=== PATIENT | male | born 1965 | race African-American/Black ===

== ENCOUNTER 2023-04-25 16:25 | Inpatient (IN) | payer MEDICARE, MEDICAID, SELFPAY ==
[2023-04-25] VITALS (12 sets, daily range): BP systolic 137–184; BP diastolic 73–99; PULSE 57–69; RESP 16–20; TEMP 36.8–36.9; O2SAT 91–98; BMI 28.0; BMI 31.2
--- NOTE | 2023-04-25 16:37 | ECG_ITS ---
The [facility] Test Date: 2023-04-25 Pat Name: SARITHA MASTERSON Department: Room: - Gender: Male Regional Merchandising Manager: : 1965 Requested By: [id number] Order Number: [id number] Reading MD: DIEGO RIOS Measurements Intervals [place] Rate: 65 P: 30 WI: 164 QRS: -9 QRSD: 84 T: 68 QT: 412 QTc: 424 Interpretive Statements 1100 Sinus rhythm 9110 normal ECG No previous ECG available for comparison Electronically Signed On 04-25-2023 22:39:00 EST by DIEGO RIOS
--- NOTE | 2023-04-25 17:12 | ED_ITS ---
HPI - SOB/Dyspnea General Chief Complaint: Shortness of Breath/Dyspnea Stated Complaint: Shortness of Breath, General Weakness Time Seen by Provider: 04/25/23 17:00 Source: patient and family Mode of arrival: Wheelchair History of Present Illness HPI Narrative: This patient is here complaining shortness of breath. He is actually in pretty decent health but over the last 3 days he has noticed wheezing. Says he gets short of breath when he tries to exert himself. He has never used tobacco products. However he lived many years in a house where there was a lot of smokers. Also additionally recently they are doing some drywall work in her house and has been around the dust and dirt from standing. He has not had any recent influenza type symptoms. He did not have a sore throat runny nose earache muscle aches and pains. He has not had any swelling of his legs. He has got longstanding hypertension. He has not had previous renal disease or heart disease. He is never had a heart catheterization or stress test. He is currently looking for a family doctor as he just moved back To this area from the [facility]. He is not having any discomfort in his chest just the shortness of breath especially with exertion. He does not have a nebulizer and has never used any MDIs in the past. He is not any purulent sputum. Related Data Home Medications Medication Instructions Recorded Confirmed allopurinol 300 mg tablet 300 mg PO DAILY 04/25/23 04/25/23 amlodipine 5 mg tablet 5 mg PO DAILY 04/25/23 04/25/23 aripiprazole 5 mg tablet (Abilify) 5 mg PO DAILY 04/25/23 04/25/23 atorvastatin 20 mg tablet 20 mg PO DAILY 04/25/23 04/25/23 lisinopril 20 mg tablet 20 mg PO DAILY 04/25/23 04/25/23 metoprolol tartrate 100 mg tablet 100 mg PO DAILY 04/25/23 04/25/23 (Lopressor) mirtazapine 30 mg tablet 30 mg PO DAILY 04/25/23 04/25/23 Allergies Allergy/AdvReac Type Severity Reaction Status Date / Time No Known Drug Allergies Allergy Verified 04/25/23 16:34 Exam Narrative Exam Narrative: Awake alert very pleasant gentleman here . He is blind and I believe that was from childhood. He is awake oriented x 3 with good cognition. There is no confusion he is a good historian. HEENT: He has no jugular vein distention, there is no carotid bruits. ENT examination does not show any evidence of obstruction, he does not have any stridor his voice is normal. His lungs are clear with no rales or rhonchi however with coughing maneuvers she does have a lot of bronchospasm. Heart sounds are normal I do not hear murmur. Abdomen is benign. He does have a previous incision from umbilical hernia but he has no abdominal pain or symptomatology. His legs do not show any edema swelling phlebitis or tenderness. Constitutional Vital Signs, click to edit/add: Last Vital Signs Temp 98.4 F 04/25/23 16:31 Pulse 65 04/25/23 16:31 Resp 18 04/25/23 16:42 BP 154/84 H 04/25/23 16:31 Pulse Ox 98 04/25/23 16:41 O2 Del Method Room Air 04/25/23 16:41 Course Vital Signs Vital signs: Vital Signs Temperature 98.4 F 04/25/23 16:31 Pulse Rate 65 04/25/23 16:31 Respiratory Rate 16 04/25/23 16:31 Blood Pressure 154/84 H 04/25/23 16:31 Pulse Oximetry 98 04/25/23 16:31 Oxygen Delivery Method Room Air 04/25/23 16:31 Temperature 98.4 F 04/25/23 16:31 Pulse Rate 65 04/25/23 16:31 Respiratory Rate 18 04/25/23 16:42 Blood Pressure 154/84 H 04/25/23 16:31 Pulse Oximetry 98 04/25/23 16:41 Oxygen Delivery Method Room Air 04/25/23 16:41 MDM - SOB/Dyspnea MDM Narrative Medical decision making narrative: This patient has no family physician to follow-up in [facility] and has not been evaluated by doctor for at least 1 year when he was living in [place]. We find substantial elevation of his BNP. I believe this cardiac silhouette shows cardiomegaly with vascular congestive changes. His renal function is c ompromised. His troponin is normal. We do not see any infectious process. I believe is prudent for him to have further evaluation as an inpatient to facilitate his ongoing care in this community. Case was discussed with the hospitalist. Discharge Plan Discharge Chief Complaint: Shortness of Breath/Dyspnea Clinical Impression: Chronic renal failure (CRF), stage 2 (mild), CHF (congestive heart failure), Hypertension Patient Disposition: Admitted as Observation Time of Disposition Decision: 18:18 Prescriptions / Home Meds: No Action allopurinol 300 mg tablet 300 mg PO DAILY amlodipine 5 mg tablet 5 mg PO DAILY mirtazapine 30 mg tablet 30 mg PO DAILY atorvastatin 20 mg tablet 20 mg PO DAILY aripiprazole [Abilify] 5 mg tablet 5 mg PO DAILY lisinopril 20 mg tablet 20 mg PO DAILY metoprolol tartrate [Lopressor] 100 mg tablet 100 mg PO DAILY Referrals: Physician,Non-Staff, MD [Primary Care Provider] - 1 week
--- NOTE | 2023-04-25 17:17 | XR_ITS ---
The [address] [address] Patient Name: SARITHA MASTERSON MRN: [id number] date: 1965 Sex: M Assigned Patient Location: ER Current Patient Location: ED.MAIN Accession/Order Number: [id number] Exam Date: 04/25/2023 17:36 Report Date: 04/25/2023 18:18 At the request of: ALEJANDRO OCONNELL Procedure: XR chest 1V EXAM: XR chest 1V HISTORY: Dyspnea COMPARISON: None. TECHNIQUE: Single view of the chest FINDINGS: Cardiomegaly. No definitive consolidation, pleural effusion, pulmonary congestion or pneumothorax. XR/XR chest 1V IMPRESSION: No acute findings. Electronically authenticated by: ANDRIY MADERA Date: 04/25/2023 18:18
[2023-04-25 17:29] LABS: Basophils Percent Auto 0.6 % (0.2-2.0); Eosinophils Absolute Auto 0.1 10^3/uL (0.0-0.7); Eosinophils Percent Auto 1.6 % (0.9-7.0); Hematocrit 29.4 % (42.0-54.0); Hemoglobin 9.3 g/dL (14.0-18.0); Immature Granulocytes Abs Auto 0.02 10^3/uL (0.00-0.03); Immature Granulocytes Pct Auto 0.3 % (0.0-0.5); Lymphocytes Absolute Auto 1.3 10^3/uL (1.2-3.8); Lymphocytes Percent Auto 18.8 % (20.5-60.0); Mean Corpuscular HGB Conc 31.6 g/dL (29.9-35.2); Mean Corpuscular Hemoglobin 30.9 pg (25.9-34.0); Mean Corpuscular Volume 97.7 fL (80.0-94.0); Mean Platelet Volume 11.9 fL (9.5-13.5); Monocytes Absolute Auto 0.6 10^3/uL (0.3-0.8); Monocytes Percent Auto 8.5 % (1.7-12.0); Neutrophils Absolute Auto 4.8 10^3/uL (1.4-6.5); Neutrophils Percent Auto 70.2 % (43.0-75.0); Platelet Count 173 10^3/uL (150-450); Red Blood Count 3.01 10^6/uL (4.70-6.10); Red Cell Distribution Width 13.3 % (11.0-15.0); White Blood Count 6.8 10^3/uL (4.0-11.0)
[2023-04-25 17:42] LABS: Internal Control Within Normal Limits; Respiratory Syncytial Virus Not Detected (NOT DETECTE)
[2023-04-25] MEDS: IPRATROPIUM/ALBUTEROL SULFATE 3 ML AMPUL.NEB IH (17:43)
[2023-04-25 17:51] LABS: Alanine Aminotransferase 12 U/L (16-63); Albumin Globulin Ratio 0.6; Albumin Level 3.2 g/dL (3.4-5.0); Alkaline Phosphatase 146 U/L (46-116); Anion Gap 13.5; Aspartate Amino Transferase 16 U/L (15-37); BUN Creatinine Ratio 10.6; Bilirubin Total 0.4 mg/dL (0.2-1.0); Chloride 107 mmol/L (98-107); Estimated GFR (African America 32 (>=60); Estimated GFR (Non-African Ame 26 (>=60); Globulin 5.1 g/dL; Glucose 100 mg/dL (74-106); Potassium 5.5 mmol/L (3.5-5.1); Sodium 140 mmol/L (136-145); Total Protein 8.3 g/dL (6.4-8.2); Troponin I High Sensitivity 16.7 pg/mL (4.0-76.1)
[2023-04-25] MEDS: BUMETANIDE 1 MG/4 ML VIAL IVP (18:23)
--- NOTE | 2023-04-25 18:30 | ECG_ITS ---
The [facility] Test Date: 2023-04-26 Pat Name: SARITHA MASTERSON Department: Room: 220 Gender: Male Fitness Coach: : 1965 Requested By: [id number] Order Number: [id number] Reading MD: DIEGO RIOS Measurements Intervals [place] Rate: 64 P: 32 DE: 161 QRS: 11 QRSD: 84 T: 63 QT: 410 QTc: 425 Interpretive Statements SINUS RHYTHM WARNING: DATA QUALITY MAY AFFECT INTERPRETATION Compared to ECG 04/25/2023 16:36:20 No significant changes Electronically Signed On 04-26-2023 6:41:03 EST by DIEGO RIOS
[2023-04-25 18:45] LABS: Bilirubin Urine NEGATIVE (NEGATIVE); Blood Urine TRACE-L (NEGATIVE); Clarity Urine CLEAR (CLEAR); Color Urine YELLOW (YELLOW); Glucose Urine UA NEGATIVE (NEGATIVE); Ketones Urine NEGATIVE (NEGATIVE); Leukocyte Esterase Urine NEGATIVE (NEGATIVE); Nitrite Urine NEGATIVE (NEGATIVE); Protein Urine 100 mg/dL (NEG/TRACE); Specific Gravity Urine 1.015 (1.005-1.025); Urobilinogen Urine 0.2 EU/dL (0.2-1.0); pH Urine 5.5 (5.0-9.0)
[2023-04-25 18:47] LABS: Urine Microscopic Indicated YES
[2023-04-25 19:12] LABS: Bacteria Urine NONE SEEN #/HPF (NONE SEEN); Mucus Urine TRACE (NONE SEEN); RBC Urine 0-2 #/HPF (0-2); WBC Urine 0-2 #/HPF (NONE SEEN)
[2023-04-25 19:13] LABS: Cast Seen? NONE SEEN #/LPF (NONE SEEN); Crystals Seen? None Seen #/HPF (None Seen); Squamous Epithelial Cell Urine NONE SEEN #/LPF (NONE/RARE)
[2023-04-25] MEDS: HYDRALAZINE HCL 20 MG/ML VIAL 10 MG IVP (20:51)
[2023-04-25] MEDS: 0.9 % SODIUM CHLORIDE 1,000 ML 75 ML IV (20:51)
[2023-04-25] MEDS: ACETAMINOPHEN 325 MG TABLET 650 MG PO (20:52)
[2023-04-25 22:56] LABS: Troponin I High Sensitivity 18.4 pg/mL (4.0-76.1)
[2023-04-26] VITALS (25 sets, daily range): BP systolic 119–165; BP diastolic 61–82; PULSE 52–91; RESP 16–20; TEMP 36.6–37.5; O2SAT 90–98
[2023-04-26] MEDS: HYDRALAZINE HCL 20 MG/ML VIAL 10 MG IVP (04:07)
[2023-04-26 04:50] LABS: Basophils Percent Auto 0.5 % (0.2-2.0); Eosinophils Absolute Auto 0.1 10^3/uL (0.0-0.7); Hematocrit 27.5 % (42.0-54.0); Hemoglobin 8.7 g/dL (14.0-18.0); Immature Granulocytes Abs Auto 0.02 10^3/uL (0.00-0.03); Immature Granulocytes Pct Auto 0.3 % (0.0-0.5); Lymphocytes Absolute Auto 1.5 10^3/uL (1.2-3.8); Lymphocytes Percent Auto 25.2 % (20.5-60.0); Mean Corpuscular HGB Conc 31.6 g/dL (29.9-35.2); Mean Corpuscular Hemoglobin 30.6 pg (25.9-34.0); Mean Corpuscular Volume 96.8 fL (80.0-94.0); Mean Platelet Volume 12.5 fL (9.5-13.5); Monocytes Absolute Auto 0.7 10^3/uL (0.3-0.8); Monocytes Percent Auto 11.3 % (1.7-12.0); Neutrophils Absolute Auto 3.6 10^3/uL (1.4-6.5); Neutrophils Percent Auto 61.7 % (43.0-75.0); Platelet Count 159 10^3/uL (150-450); Red Blood Count 2.84 10^6/uL (4.70-6.10); Red Cell Distribution Width 13.2 % (11.0-15.0); White Blood Count 5.8 10^3/uL (4.0-11.0)
[2023-04-26 05:20] LABS: Alanine Aminotransferase 11 U/L (16-63); Albumin Globulin Ratio 0.6; Albumin Level 2.9 g/dL (3.4-5.0); Alkaline Phosphatase 133 U/L (46-116); Anion Gap 12.4; Aspartate Amino Transferase 14 U/L (15-37); BUN Creatinine Ratio 10.8; Bilirubin Total 0.6 mg/dL (0.2-1.0); Calcium 8.7 mg/dL (8.5-10.1); Carbon Dioxide 23.5 mmol/L (21.0-32.0); Chloride 106 mmol/L (98-107); Chol HDL Ratio 2.1; Cholesterol 147 mg/dL (<=200); Estimated GFR (African America 32 (>=60); Estimated GFR (Non-African Ame 27 (>=60); Globulin 4.6 g/dL; Glucose 82 mg/dL (74-106); HDL Cholesterol 69 mg/dL (40-60); Potassium 4.9 mmol/L (3.5-5.1); Sodium 137 mmol/L (136-145); Total Protein 7.5 g/dL (6.4-8.2); Triglycerides 66 mg/dL (<=150); Troponin I High Sensitivity 20.1 pg/mL (4.0-76.1); VLDL CHOLESTEROL 13.2 mg/dL
--- NOTE | 2023-04-26 06:00 | CA_ITS ---
Patient Name: SARITHA MASTERSON MR#: [id number] : 1965 Exam Date: 04/26/2023 Ordering Doctor: ORI OROZCO ECHOCARDIOGRAM REPORT PROCEDURE: CA ECHO DOPPLER COMPLETE INDICATIONS: new CHF Exacerbation COMPARISON: None. DESCRIPTION: COMPLETE ECHOCARDIOGRAM Real-time transthoracic echocardiography with 2D, M-mode, spectral and color flow Doppler performed. QUALITY: Technical quality was good. LEFT VENTRICLE: Normal chamber size. Mild concentric left ventricular hypertrophy. Global left ventricular systolic function is normal. LV EF: Visual estimation of left ventricular ejection fraction is 65-70% DIASTOLIC: Diastolic function is indeterminate. ATRIAL SEPTUM: LEFT ATRIUM: Severe dilatation. RIGHT ATRIUM: Moderate dilatation. RIGHT VENTRICLE: Normal chamber size. Normal right ventricular systolic function. TRICUSPID VALVE: Normal mobility and thickness. No stenosis with trivial regurgitation. Unable to assess right-sided pressures due to lack of measurable tricuspid regurgitation. MITRAL VALVE: Normal mobility and thickness. No evidence of mitral valve stenosis. There is no mitral annular calcification. AORTIC VALVE: Trileaflet appearance. Normal leaflet mobility. Cannot rule out possible vegetation. No evidence of aortic valve stenosis. Echogenic density seen on the ventricular surface of the aortic valve in the parasternal long view. MARCO recommended for further evaluation. Mild to moderate eccentric aortic regurgitation. AORTIC ROOT: Normal diameter and appearance. PULMONIC VALVE: Normal thickness and mobility. No stenosis. No regurgitation. PERICARDIUM: Trivial pericardial effusion. IVC: Collapses with inspirations. Normal size. PLEURA: CONCLUSION: 1. Mild concentric left ventricular hypertrophy with normal systolic function. LVEF is estimated at 65 to 70%. 2. Normal right ventricular size and systolic function. 3. Moderate to severe biatrial dilatation. 4. The aortic valve appears to be trileaflet. There is evidence of a mobile echogenic mass attached to the ventricular surface of the aortic valve that could represent calcification, old healed vegetation or active vegetation. There is mild to moderate eccentric aortic regurgitation. 5. A transesophageal echocardiogram is recommended to provide better assessment. Adult Echocardiography Procedure Report Left Ventricle LVEDD (3.7 - 5.6 cm): 5.88 cm LVESD (2.2 - 4.0 cm): 3.57 cm LVIVS thickness (0.6 - 1.2 cm): 1.29 cm LVPW thickness (0.5 - 1.0 cm): 1.16 cm e': 0.09 m/s E - e': 11.49 LVOT Max Gradient: 5.63 mm[Hg] LVOT Area (cm2): 1.19 m/s Peak Velocity (LVOT): 1.19 m/s Mean Velocity (LVOT): 0.91 m/s LVOT Diameter 2.03 cm Left Ventricular Ejection Fraction: 65-70 % Left Atrium LA Volume Index (2D A2C): 56.58 ml/m2 Left Atrium Systolic Dimension: 4.50 cm Mitral Valve MV E to A Ratio: 1.63 Mitral Valve A-Wave Peak Velocity: 0.61 m/s Mitral Valve E-Wave Peak Velocity: 0.99 m/s Right Ventricle Aorta AO Root Diam: 3.30 cm Ascending Ao Diam: 3.67 cm Aortic Valve AoV Area (Peak Berry): 1.92 cm2, 1.92 cm2 AoV Area (VTI): 2.17 cm2, 2.17 cm2 Peak Velocity(Antegrade Flow): 1.99 m/s Peak Gradient(Antegrade Flow): 15.79 mm[Hg] Mean Velocity(Antegrade Flow): 1.31 m/s Mean Gradient(Antegrade Flow): 8.03 mm[Hg] Velocity Time Integral: 42.69 cm Tricuspid Valve Peak Velocity (Regurgitant Flow): 1.58 m/s, 1.86 m/s Pulmonic Valve Mean Gradient: 4.66 mm[Hg], 5.25 mm[Hg] Mean Velocity: 1.03 m/s, 1.08 m/s Peak Velocity: 1.42 m/s Peak Gradient: 7.56 mm[Hg], 8.61 mm[Hg] Right Atrium Dictated by: Ori Ortez M.D. on 04/26/2023 at 15:56 Approved by: Ori Ortez M.D. on 04/26/2023 at 16:04
--- OUTSIDE RECORDS SUMMARY | 2023-04-26 09:01 | XMS_ITS | CCD ---
Author Name Unknown Address [address] [place] [id number] Organization [facility] Care Team Providers Care Electrician'S Assistant Name Role Phone KELSIE CARRILLO Unavailable Unavailable BRODY ANGULO Unavailable Unavaila ble Problems Problem Classification Problem Date Documented Da te Episodic/Chronic Unclassified (1 source) Unknown / UNK(Unknown) Onset: 05-20-2017 Results Test Name Value Interpretation Reference Range Facil itvikram PROGRESSon 05-20-2017 PROGRESS HNO ID: [id number] thor: Kelsie Borjaervice: (none)Author Type: PhysicianType: Progress NotesFiled: 05/20/2017 4:10 PMNote Text:1) 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 Rodriguez - 2009) BSCVA 20/250, PH ) Glaucomatous Optic Nerve Changes Shows inferior and superior NFL losses OU normal IOP tested with reasonable color testing (~12/15 plates OU)5) Macular RPE Atrophy OS may be responsible for vision loss at level of 20/200 no macular atrophy ODPlan: It seems that the majority of his visual loss OD is from theKeratoconus/Keratoglob us with 14.5 D of ATR AstigmatismConsider Specialty CL fitting with Dr. Cherri Linares at [facility] not able to fit, then consider DALK MARILIA have confirmed and edited as necessary the relevant ophthalmic history,ROS, and the neuro exam findings as obtained by others. I have seen andexamined this patient.I have discussed the case and the management of this patient's care withthe Resident/Fellow, if applicable. I also have reviewed and agree withthe assessment and plan as stated above and agree with all of its relevantcomponents.Kelsie Carrillo MD May 20, 2017 4:04 PM Normal [facility] Encounters Encounter Date Encounter Type Care Provider Facility Start: 05-20-2017 End: 05-27-2017 Ambulatory KELSIE CARRILLO [facility] Summary Purpose Family History No Family History Records Found Advance Directives No Advanced Directives Records Found Additional Source Comments (unrecognized sect ion and content) No Status Records Found INFORMATION SOURCE (unrecogn ized section and content) DATE CREATED AUTHOR 08/11/2017 [facility] FOR RECORDS PERTAINING TO PATIENTS WHO ARE OR HAVE BEEN ENROLLED IN A CHEMICAL DEPENDENCY/SUBSTANCEABUSE PROGRAM, SOME INFORMATION MAY BE OMITTED. This clinical summary was aggregated from multiple sources. Caution should be exercised in using it in the provision of clinical care. This summary normalizes information from multiple sources, and as a consequence, information in this document may materially change the coding, format and clinical context of patient data. In addition, data may be omitted in some cases. CLINICAL DECISIONS SHOULD BE BASED ON THE PRIMARY CLINICAL RECORDS. [facility] [employer] provides no warranty or guarantee of the accuracy or completeness of information in this document.
[2023-04-26] MEDS: ALLOPURINOL 300 MG TABLET PO (09:06)
[2023-04-26] MEDS: MIRTAZAPINE 15 MG TABLET 30 MG PO (09:06)
[2023-04-26] MEDS: METOPROLOL TARTRATE 100 MG TABLET PO (09:07)
[2023-04-26] MEDS: ARIPIPRAZOLE 5 MG TABLET PO (09:07)
[2023-04-26] MEDS: AMLODIPINE BESYLATE 5 MG TABLET PO (09:07)
[2023-04-26] MEDS: ATORVASTATIN CALCIUM 20 MG TABLET PO (09:07)
[2023-04-26] MEDS: FUROSEMIDE 20 MG/2 ML VIAL IVP (09:08)
[2023-04-26] MEDS: ACETAMINOPHEN 325 MG TABLET 650 MG PO (09:10)
[2023-04-26] MEDS: 0.9 % SODIUM CHLORIDE 1,000 ML 75 ML IV ×2 (09:21→20:16)
--- NOTE | 2023-04-26 09:50 | CM.NOTE ---
Rounds made with Dr. Chau. Dr. Chau reviews plan of care-Echo ordered, Cardiology Consult. Mr. Sparrow with complaints of back pain. P.T. to be ordered.
[2023-04-26 10:30] LABS: Estimated Average Glucose 88 mg/dL; Glycohemoglobin A1C 4.7 % (4.5-6.2)
--- NOTE | 2023-04-26 12:29 | PM.CN ---
Consult Note: HPI Data of Consult Patient: new to practice Consult date: 04/26/23 Requesting Physician: Gayatri Lemus NP Primary Care Provider: Non-Staff Physician, Family Provider: CONNIE NGO Consult Narrative Reason for consult: elevated BNP, SOB Narrative: 58 yo patient presented to ED complaining shortness of breath. Says he was having wheezing and short of breath with exertion. He has never used tobacco products, admits that he lives with smokers and significant exposure. He has not had any recent influenza type symptoms. He did not have a sore throat runny nose, earache, muscle aches,or pains. He has not had any swelling of his legs. He has got longstanding hypertension and dyslipidemia. Currently denied chest pain, SOB, Orthopnea, fever, chills, N/V/D. Overall states he feels well today. Denied weight gain or leg swelling. Denied any personal h/o cardiac disease, ever having a heart cath or heart surgery. Denied any family h/o early heart disease. cc:: CC: Gayatri Lemus NP Review of Systems ROS Status of ROS 10 or more systems reviewed and unremarkable except as noted in history and below [facility] Medical History (Updated 04/26/23 @ 12:51 by ISABELLE EMERY) DM2 (diabetes mellitus, type 2) ?E11.9 - Type 2 diabetes mellitus without complications (ICD-10) Bipolar depression ?F31.9 - Bipolar disorder, unspecified (ICD-10) Hypertension ?I10 - Essential (primary) hypertension (ICD-10) CHF (congestive heart failure) ?I50.9 - Heart failure, unspecified (ICD-10) Chronic renal failure (CRF), stage 2 (mild) ?N18.2 - Chronic kidney disease, stage 2 (mild) (ICD-10) Hernia ?K46.9 - Unspecified abdominal hernia without obstruction or gangrene (ICD-10) Blindness ?H54.7 - Unspecified visual loss (ICD-10) Surgical History History of lumbar laminectomy for spinal cord decompression ?Z98.890 - Other specified postprocedural states (ICD-10) Family History Sister Family history of CHF (congestive heart failure) Family history of cancer Family history of diabetes mellitus Family history of hypertension Father Family history of cancer Mother Family history of cancer Brother Family history of diabetes mellitus Family history of hypertension Social History Within the past year, how often did you have a drink containing alcohol: 4 or more times a week Within the past year, how many standard drinks containing alcohol did you have on a typical day: 3 or 4 Within the past year, how often did you have six or more drinks on one occasion: never Total score: 2 Score interpretation: A score of 4 or more indicates drinking is likely to affect patient's safety. Smoking status: Never smoker Non-prescribed substance use: denies use Previous occupational history: disabled Highest level of school completed/degree received: high school graduate Are you now , , , , never or living with a partner: never In a typical week, how many times do you talk on the telephone with family, friends, or neighbors: once per week How often do you get together with friends or relatives: once per week How often do you attend religion or restorationism services: never Do you belong to any clubs or organizations such as religion groups unions, [employer] or athletic groups, or school groups: no Total score: 0 Score interpretation: A score of less than or equal to 1 indicates the most socially isolated. Little interest or pleasure in doing things: not at all Feeling down, depressed, or hopeless: several days Feel stressed/tense/nervous/anxious/difficulty sleeping: only a little Gender Identity: male Meds Home Medications and Allergies Home Medications Medication Instructions Recorded Confirmed Type allopurinol 300 mg tablet 300 mg PO DAILY 04/25/23 04/25/23 History amlodipine 5 mg tablet 5 mg PO DAILY 04/25/23 04/25/23 History aripiprazole 5 mg tablet (Abilify) 5 mg PO DAILY 04/25/23 04/25/23 History atorvastatin 20 mg tablet 20 mg PO DAILY 04/25/23 04/25/23 History lisinopril 20 mg tablet 20 mg PO DAILY 04/25/23 04/25/23 History metoprolol tartrate 100 mg tablet 100 mg PO DAILY 04/25/23 04/25/23 History (Lopressor) mirtazapine 30 mg tablet 30 mg PO DAILY 04/25/23 04/25/23 History Allergies Allergy/AdvReac Type Severity Reaction Status Date / Time No Known Drug Allergies Allergy Verified 04/25/23 16:34 Exam Constitutional Vital Signs, click to edit/add: Last Vital Signs Temp 98.1 F 04/26/23 11:15 Pulse 65 04/26/23 11:51 Resp 16 04/26/23 11:15 BP 137/63 04/26/23 11:15 Pulse Ox 91 L 04/26/23 11:15 O2 Del Method Room Air 04/26/23 11:15 Common normals: no apparent distress, oriented x3 and well nourished Respiratory Common normals: normal respiratory effort, no retractions, no use of accessory muscles and clear to auscultation bilaterally Effort & inspection: able to speak in complete sentences Cardio Common normals: no JVD, regular rate, regular rhythm, S1 normal heart sound, S2 normal heart sound, no gallops, no clicks and no murmurs Peripheral pulses: radial pulses present, posterior tibial pulses present and dorsalis pedis pulses present Extremity Common normals: normal capillary refill and no clubbing, cyanosis or edema Neuro Common normals: oriented x3 and CN's II-XII intact bilaterally Psych Common normals: mental status grossly normal, thought process normal, cooperative, affect normal and speech normal Results Labs Labs: Short CBC 04/25/23 04/26/23 Range/Units 17:15 03:57 WBC 6.8 5.8 (4.0-11.0) 10^3/uL Hgb 9.3 L 8.7 L (14.0-18.0) g/dL Hct 29.4 L 27.5 L (42.0-54.0) % Plt Count 173 159 (150-450) 10^3/uL BMP 04/25/23 04/26/23 17:15 03:57 Sodium 140 137 Potassium 5.5 H 4.9 Chloride 107 106 Carbon Dioxide 25.0 23.5 BUN 27.0 H 27.0 H Creatinine 2.55 H 2.50 H Glucose 100 82 Calcium 9.0 8.7 Liver Function 04/25/23 04/26/23 Range/Units 17:15 03:57 Total Bilirubin 0.4 0.6 (0.2-1.0) mg/dL AST 16 14 L (15-37) U/L ALT 12 L 11 L (16-63) U/L Alkaline Phosphatase 146 H 133 H (46-116) U/L Albumin 3.2 L 2.9 L (3.4-5.0) g/dL Urine 04/25/23 Range/Units 18:30 Urine Color Yellow (YELLOW) Urine Clarity Clear (CLEAR) Urine pH 5.5 (5.0-9.0) Ur Specific [place] 1.015 (1.005-1.025) Urine Protein 100 A (NEG/TRACE) mg/dL Urine Glucose (UA) Negative (NEGATIVE) mg/dL 04/26/23 03:57 BNP 2187.0?H* 04/25/23 17:15 2387.0?H* Troponin Collected Result ? Units Range Specimen 04/26/23 03:57 20.1 Cholesterol -147 <=200?mg/dL LDL Cholesterol, Calc-65.0 VLDL Cholesterol-13.2 HDL Cholesterol-69?H 40-60?mg/dL Cholesterol/HDL Ratio-2.1 ECG Attestation: ?I have reviewed the pertinent ECG results. ECG interpretation date: 04/25/23 Interpretation: Interpretive Statements SINUS RHYTHM Compared to ECG 04/25/2023 16:36:20 No significant changes Electronically Signed On 04-26-2023 6:41:03 EST by DIEGO RIOS Imaging Chest x-ray: Attestation: I have reviewed the pertinent imaging results. Radiologist's impression: Procedure: XR chest 1V EXAM: XR chest 1V HISTORY: Dyspnea COMPARISON: None. TECHNIQUE: Single view of the chest FINDINGS: Cardiomegaly. No definitive consolidation, pleural effusion, pulmonary congestion or pneumothorax. XR/XR chest 1V IMPRESSION: No acute findings. Electronically authenticated by: ANDRIY MADERA Date: 04/25/2023 18:18 Assessment and Plan Assessment and Plan (1) STEW (acute kidney injury): Assessment and Plan: managed by primary service (2) Dyspnea on exertion: Assessment and Plan: Currently resolved. (3) Elevated brain natriuretic peptide (BNP) level: Assessment and Plan: Awaiting echocardiogram today to assess cardiac function, LV/EF, RV size and function, Rt sided pressures. Per assessment pt does not appear fluid overloaded, no edema or rales in light of STEW. May benefit from a nephrology referral. Monitor daily weights, I&O, fluid restriction 1.5-2L/day Diuretics on hold per PCP for STEW (4) DM2 (diabetes mellitus, type 2): Assessment and Plan: managed my primary service Qualifiers: Diabetes mellitus complication status: with kidney complications Diabetes mellitus complication detail: with other kidney complication Diabetes mellitus detention insulin use: without rat exterminator use Qualified Code(s): E11.29 - Type 2 diabetes mellitus with other diabetic kidney complication (5) Hypertension: Assessment and Plan: CUrrently fairly well controlled 137/63 Continue norvasc,and metoprolo, lisinopril on hold with STEW Qualifiers: Hypertension type: primary hypertension Qualified Code(s): I10 - Essential (primary) hypertension Plan as above
--- NOTE | 2023-04-26 13:25 | P.HP_ITS ---
<Statement entered by Alejo Chau MD - 04/27/23 05:55> This documentation has been reviewed and approved. Patient seen and evaluated in the morning of admission. Agree with input and findings. On my exam he does have trace peripheral edema. Uncontrolled hypertension could have led to flash pulmonary edema-patient was improved in the morning, check an echo report. Elevated liver function test-follow daily Status this is acute versus chronic kidney disease H&P: HPI History of Present Illness Chief complaint: Shortness of Breath, CHF, Hypertension Narrative: 04/26/23 0910 This is a 58-year-old male patient with a past medical history as outlined below including R eye blindness, bipolar depression, hyperlipidemia, hypertension, and gout; who presented to the ED last night complaining of a 3-day course of shortness of breath especially with exertion. He denies any URI symptoms, fever, increased cough, chest pain, N/V/D, or any other acute symptoms. He reported moving to this area from [place] in January. He has not yet established with a PCP since relocation to [place]. He denies any history of kidney disease, but does note a remote history of diabetes that resolved after he lost weight. He denies tobacco abuse, but lived with smokers for many years. Workup in the ED revealed apparent acute kidney injury (BUN 27, CR 2.55, GFR 26), and elevated BNP (2387). Chest x-ray revealed cardiomegaly but no consolidation, vascular congestion, or pneumothorax. EKG revealed sinus rhythm the patient was not hypoxic but was noted to have a reactive airway in the ED. He was admitted to the hospitalist service last night for STEW and reactive airway with dyspnea on exertion. At the time of my exam the patient is resting comfortably in bed. His respirations are even and unlabored and he does not require O2 supplementation. Mild, isolated wheezing is noted to the left lower lobe. His renal function improved slightly with IV fluid administration overnight. He was given a dose of Bumex in the ED due to his elevated BNP, but in the absence of peripheral edema or pulmonary edema, we clinically suspect the elevated BNP is related to his renal failure. We will hold further diuretics for now. The patient does not have any idea if he has chronic kidney disease at baseline. We do not have access to any labs from [place] at this time but we will attempt to obtain these if possible. Review of Systems ROS Status of ROS 10 or more systems reviewed and unremark able except as noted in history and below [facility] Medical History (Updated 04/26/23 @ 13:51 by Gayatri Lemus NP) Hyperlipidemia ?E78.5 - Hyperlipidemia, unspecified (ICD-10) DM2 (diabetes mellitus, type 2) ?E11.9 - Type 2 diabetes mellitus without complications (ICD-10) Bipolar depression ?F31.9 - Bipolar disorder, unspecified (ICD-10) Hypertension ?I10 - Essential (primary) hypertension (ICD-10) CHF (congestive heart failure) ?I50.9 - Heart failure, unspecified (ICD-10) Chronic renal failure (CRF), stage 2 (mild) ?N18.2 - Chronic kidney disease, stage 2 (mild) (ICD-10) Hernia ?K46.9 - Unspecified abdominal hernia without obstruction or gangrene (ICD- 10) Blindness ?H54.7 - Unspecified visual loss (ICD-10) Surgical History History of lumbar laminectomy for spinal cord decompression ?Z98.890 - Other specified postprocedural states (ICD-10) Family History Sister Family history of CHF (congestive heart failure) Family history of cancer Family history of diabetes mellitus Family history of hypertension Father Family history of cancer Mother Family history of cancer Brother Family history of diabetes mellitus Family history of hypertension Social History Within the past year, how often did you have a drink containing alcohol: 4 or more times a week Within the past year, how many standard drinks containing alcohol did you have on a typical day: 3 or 4 Within the past year, how often did you have six or more drinks on one occasion: never Total score: 2 Score interpretation: A score of 4 or more indicates drinking is likely to affect patient's safety. Smoking status: Never smoker Non-prescribed substance use: denies use Previous occupational history: disabled Highest level of school completed/degree received: high school graduate Are you now , , , , never or living with a partner: never In a typical week, how many times do you talk on the telephone with family, friends, or neighbors: once per week How often do you get together with friends or relatives: once per week How often do you attend scientologist or mosque services: never Do you belong to any clubs or organizations such as scientologist groups unions, fraternal or athletic groups, or school groups: no Total score: 0 Score interpretation: A score of less than or equal to 1 indicates the most socially isolated. Little interest or pleasure in doing things: not at all Feeling down, depressed, or hopeless: several days Feel stressed/tense/nervous/anxious/difficulty sleeping: only a little Gender Identity: male Meds Home Medications and Allergies Home Medications Medication Instructions Recorded Confirmed Type allopurinol 300 mg tablet 300 mg PO DAILY 04/25/23 04/25/23 History amlodipine 5 mg tablet 5 mg PO DAILY 04/25/23 04/25/23 History aripiprazole 5 mg tablet (Abilify) 5 mg PO DAILY 04/25/23 04/25/23 History atorvastatin 20 mg tablet 20 mg PO DAILY 04/25/23 04/25/23 History lisinopril 20 mg tablet 20 mg PO DAILY 04/25/23 04/25/23 History metoprolol tartrate 100 mg tablet 100 mg PO DAILY 04/25/23 04/25/23 History (Lopressor) mirtazapine 30 mg tablet 30 mg PO DAILY 04/25/23 04/25/23 History Allergies Allergy/AdvReac Type Severity Reaction Status Date / Time milk Allergy Severe Hives Verified 04/26/23 13:32 Exam Constitutional Vital Signs, click to edit/add: Last Vital Signs Temp 98.1 F 04/26/23 11:15 Pulse 65 04/26/23 11:51 Resp 16 04/26/23 11:15 BP 137/63 04/26/23 11:15 Pulse Ox 91 L 04/26/23 11:15 O2 Del Method Room Air 04/26/23 11:15 Common normals: no apparent distress, oriented x3, alert and well nourished General appearance: cooperative Orientation/consciousness: Yes awake HENMT Common normals: normocephalic, head/scalp atraumatic, hearing grossly normal bilaterally, external nose normal and moist oral mucous membranes Head and scalp: normocephalic and atraumatic Eye Common normals: PERRL, EOMs intact bilaterally, conjunctivae normal and no scleral icterus Alignment: alignment normal Eyelid: eyelids normal Neck & C-Spine Common normals: full ROM, supple and no JVD Chest Common normals: inspection of chest normal Chest: symmetrical chest wall rise Respiratory Common normals: normal respiratory effort, no retractions and no use of accessory muscles Effort & inspection: able to speak in complete sentences Auscultation: wheezes (Faint insp LLL) Cardio Common normals: no JVD, regular rate, regular rhythm, S1 normal heart sound, S2 normal heart sound, no gallops, no clicks, no rub and peripheral pulses 2+ throughout Heart sounds: murmur (HSM 3/6) GI Common normals: Normal to inspection, nondistended, normoactive bowel sounds present, soft to palpation, non-tender, no hepatosplenomegaly, no masses and no bruits Bladder/kidney exam: bladder normal to palpation Back & Pelvis Common normals: thoracic and lumbar spine normal to inspection Extremity Common normals: normal capillary refill and no pedal edema General: normal exam except as noted; no clubbing and no cyanosis Neuro [place] Coma Scale: GCS not evaluated Common normals: oriented x3, CN's II-XII intact bilaterally, moves all extremities, no focal motor deficits and no sensory deficits noted Sensorium/orientation: awake and alert Speech: speech normal Motor exam: strength 5/5 throughout Psych Common normals: mental status grossly normal, thought process normal, affect normal and activity/motor behavior normal Results Labs Labs: Short CBC 04/25/23 04/26/23 Range/Units 17:15 03:57 WBC 6.8 5.8 (4.0-11.0) 10^3/uL Hgb 9.3 L 8.7 L (14.0-18.0) g/dL Hct 29.4 L 27.5 L (42.0-54.0) % Plt Count 173 159 (150-450) 10^3/uL BMP 04/25/23 04/26/23 17:15 03:57 Sodium 140 137 Potassium 5.5 H 4.9 Chloride 107 106 Carbon Dioxide 25.0 23.5 BUN 27.0 H 27.0 H Creatinine 2.55 H 2.50 H Glucose 100 82 Calcium 9.0 8.7 Liver Function 04/25/23 04/26/23 Range/Units 17:15 03:57 Total Bilirubin 0.4 0.6 (0.2-1.0) mg/dL AST 16 14 L (15-37) U/L ALT 12 L 11 L (16-63) U/L Alkaline Phosphatase 146 H 133 H (46-116) U/L Albumin 3.2 L 2.9 L (3.4-5.0) g/dL Urine 04/25/23 Range/Units 18:30 Urine Color Yellow (YELLOW) Urine Clarity Clear (CLEAR) Urine pH 5.5 (5.0-9.0) Ur Specific [place] 1.015 (1.005-1.025) Urine Protein 100 A (NEG/TRACE) mg/dL Urine Glucose (UA) Negative (NEGATIVE) mg/dL Pulse Oximetry Attestation: I have reviewed the pertinent pulse oximetry results. Imaging Chest x-ray: Attestation: I have reviewed the pertinent imaging results. Radiologist's impression: IMPRESSION: No acute findings. Assessment and Plan Assessment and Plan (1) STEW (acute kidney injury): Assessment and Plan: Acute * Adm inpatient * Plan more than 2 midnight stay for medically necessary hospital care * Suspect acute as pt does not recollect prior hx of CKD * Attempt to obtain records from previous [place] PCP if possible * Hold renal toxic meds including home ACEi and further diuretic doses * Gentle IVF at 75/hr * CMP daily (2) Mild reactive airways disease: Assessment and Plan: Acute * Unclear etiology - no known history of environmental allergies or asthma * Duonebs PRN for SOB or wheezing * No evidence of hypoxia to date (3) Dyspnea on exertion: Assessment and Plan: Acute * 2/2 reactive airways - see above * Mild, improving * No pneumonia or CHF on CXR * No hypoxia * See elevated BNP (4) Elevated brain natriuretic peptide (BNP) level: Assessment and Plan: Acute * Unclear etiology * No known CHF history, no pulmonary vascular congestion or peripheral edema * Possibly 2/2 STEW/CKD * Trending down * 2D Echo today * Cardiology consult - we appreciate their assistance with this pt's care * BNP in AM (5) Hypertension: Assessment and Plan: Chronic * Hold home lisinopril d/t STEW * Increase home amlodipine to 10 mg daily * Continue home metoprolol * PRN Hydralazine IVP Qualifiers: Hypertension type: primary hypertension Qualified Code(s): I10 - Essential (primary) hypertension (6) DM2 (diabetes mellitus, type 2): Assessment and Plan: Chronic * Remote hx of metformin use, but diet controlled now since weight loss * No hyperglycemia since arrival * A1C in AM to monitor recent trend Qualifiers: Diabetes mellitus salvage determiner insulin use: without senior care use Diabetes mellitus complication status: with kidney complications Diabetes mellitus complication detail: with other kidney complication Qualified Code(s): E11.29 - Type 2 diabetes mellitus with other diabetic kidney complication (7) Hyperlipidemia: Assessment and Plan: Chronic * Continue home statin (8) Bipolar depression: Assessment and Plan: Chronic * Continue home mirtazapine and Abilify
[2023-04-26 14:43] LABS: C. Difficile PCR NEGATIVE (NEGATIVE)
--- NOTE | 2023-04-26 15:10 | SWNOTE1 ---
SW met with pt to discuss dc needs. Pt lives at home by himself. He has a sister who is close by. Pt moved back from [place], voiced he was just tired of living here. He was originally from [place]. Pt voices he is independent at home. Pt also stated he went to [place] for his eyes, he had surgery on them, but it did not work. He has a hard time seeing out of both eyes. He voiced he could not see SW, pt was in the hospital bed and SW was sitting on couch. Pt did voice his sister is around here and helps as needed. Pt does not voice any discharge concerns. Pt does not have a PCP in this area. SW did provide pt with the list of physicians in this area accepting new patients. SABI advised pt if he had any questions to ask for SW.
[2023-04-26] MEDS: LOPERAMIDE HCL 2 MG CAPSULE 4 MG PO (15:18)
[2023-04-27] VITALS (7 sets, daily range): BP systolic 137–160; BP diastolic 62–68; PULSE 18–75; RESP 16–18; TEMP 36.8–36.9; O2SAT 92–93
[2023-04-27 04:55] LABS: Basophils Percent Auto 0.6 % (0.2-2.0); Eosinophils Absolute Auto 0.1 10^3/uL (0.0-0.7); Eosinophils Percent Auto 1.9 % (0.9-7.0); Hematocrit 27.4 % (42.0-54.0); Hemoglobin 8.6 g/dL (14.0-18.0); Immature Granulocytes Abs Auto 0.02 10^3/uL (0.00-0.03); Immature Granulocytes Pct Auto 0.4 % (0.0-0.5); Lymphocytes Absolute Auto 1.4 10^3/uL (1.2-3.8); Lymphocytes Percent Auto 27.3 % (20.5-60.0); Mean Corpuscular HGB Conc 31.4 g/dL (29.9-35.2); Mean Corpuscular Hemoglobin 30.6 pg (25.9-34.0); Mean Corpuscular Volume 97.5 fL (80.0-94.0); Monocytes Absolute Auto 0.5 10^3/uL (0.3-0.8); Monocytes Percent Auto 10.4 % (1.7-12.0); Neutrophils Absolute Auto 3.1 10^3/uL (1.4-6.5); Neutrophils Percent Auto 59.4 % (43.0-75.0); Platelet Count 154 10^3/uL (150-450); Red Blood Count 2.81 10^6/uL (4.70-6.10); Red Cell Distribution Width 13.2 % (11.0-15.0); White Blood Count 5.2 10^3/uL (4.0-11.0)
[2023-04-27 05:37] LABS: Alanine Aminotransferase 8 U/L (16-63); Albumin Globulin Ratio 0.6; Albumin Level 2.9 g/dL (3.4-5.0); Alkaline Phosphatase 127 U/L (46-116); Anion Gap 12.4; Aspartate Amino Transferase 11 U/L (15-37); BUN Creatinine Ratio 10.5; Bilirubin Total 0.6 mg/dL (0.2-1.0); Calcium 8.6 mg/dL (8.5-10.1); Chloride 108 mmol/L (98-107); Estimated GFR (African America 34 (>=60); Estimated GFR (Non-African Ame 28 (>=60); Globulin 4.8 g/dL; Glucose 84 mg/dL (74-106); Potassium 4.4 mmol/L (3.5-5.1); Sodium 139 mmol/L (136-145); Total Protein 7.7 g/dL (6.4-8.2)
[2023-04-27] MEDS: AMLODIPINE BESYLATE 5 MG TABLET 10 MG PO (08:48)
[2023-04-27] MEDS: ALLOPURINOL 300 MG TABLET PO (08:52)
[2023-04-27] MEDS: TRAMADOL HCL 50 MG TABLET PO (08:52)
[2023-04-27] MEDS: ARIPIPRAZOLE 5 MG TABLET PO (08:52)
[2023-04-27] MEDS: MIRTAZAPINE 15 MG TABLET 30 MG PO (08:52)
[2023-04-27] MEDS: METOPROLOL TARTRATE 100 MG TABLET PO (08:52)
[2023-04-27] MEDS: ATORVASTATIN CALCIUM 20 MG TABLET PO (08:54)
[2023-04-27] MEDS: 0.9 % SODIUM CHLORIDE 1,000 ML 75 ML IV (10:14)
--- NOTE | 2023-04-27 10:29 | SWNOTE1 ---
SABI spoke to pt while Gayatri nurse practitioner was in room. He is to follow up with cardiology and he would like to use Namita Roldan as his PCP (nurse practitioner) to follow up with. SABI did relay this information to Danyell and also to Marina, electrocardiograph operator. Pt voiced his sister will be providing ride home today.
--- NOTE | 2023-04-27 11:18 | CM.NOTE ---
Rounds made with Dr. Chau. Plan for discharge today.
--- NOTE | 2023-04-27 12:08 | P.DS_ITS ---
<Statement entered by Alejo Chau MD - 04/27/23 19:11> This documentation has been reviewed and approved. Patient was seen and evaluated earlier this morning. Patient had not been up and ambulating yet. He does overall feel improved his only significant thing is his back pain. Agree with input and findings by nurse practitioner. He will follow-up with my nurse practitioner at [facility]. Will arrange for the nephrology follow-up at that time DS: Providers Provider Date of admission: 04/25/23 18:50 Primary care physician: Non-Staff PhysicianMD Consults: 04/25/23 18:33 Consult to Cardiology Routine Reason for consultation: new CHF Exacerb; no cardiac Hx/no stress test Has provider been notified: No 04/27/23 10:35 Physical Therapy Eval and Treat Routine Reason for consultation: back pain Has provider been notified: No Discharging clinician: Gayatri Lemus DS: Diagnosis Discharge Diagnosis (1) STEW (acute kidney injury): (2) Mild reactive airways disease: (3) Dyspnea on exertion: (4) Elevated brain natriuretic peptide (BNP) level: (5) Hypertension: Qualifiers: Hypertension type: primary hypertension Qualified Code(s): I10 - Esse ntial (primary) hypertension (6) DM2 (diabetes mellitus, type 2): Qualifiers: Diabetes mellitus complication detail: with other kidney complication Diabetes mellitus complication status: with kidney complications Diabetes mellitus allergist insulin use: without allergist use Qualified Code(s): E11.29 - Type 2 diabetes mellitus with other diabetic kidney complication (7) Hyperlipidemia: (8) Bipolar depression: (9) Chronic back pain greater than 3 months duration: DS: Summary Hospital Course Hospital Course: The patient was admitted with acute kidney injury, dyspnea on exertion with mild reactive airway disease, and an elevated BNP. As the patient just moved to this area from [place] and we do not have any outpatient labs, it is unclear if his renal function represents his baseline or acute kidney injury. He was treated with IV fluids and had mild improvement in his kidney function but no significant change. We suspect this may represent his baseline but that is yet to be determined. Renal toxic medications were held including lisinopril during his stay and at discharge. His amlodipine was increased to improve his hypertensive control with the absence of lisinopril. The patient had mild wheezing on exam but no significant dyspnea after admission and no hypoxia. DuoNebs were ordered but the patient did not require any DuoNeb administration. We defer further treatment to his outpatient provider after discharge if indicated. An elevated proBNP was also noted on admission of unclear etiology with no known history of CHF. A 2D echo was obtained and cardiology was consulted. They noted the patient did not appear hypervolemic during his stay and did not require diuretic administration, especially in light of his renal function. His 2D echo revealed preserved LVEF of 65 to 70%, normal RV size and systolic function, and moderate to severe biatrial dilatation. Evidence of a mobile echogenic mass attached to the ventricular surface of the aortic valve was noted and could represent calcification, old healed vegetation or active vegetation. Mild to moderate eccentric aortic regurgitation was also noted. A follow up MARCO was recommended. In an abundance of caution blood cultures x 2 were obtained to rule out bacteremia, but the patient has been afebrile and nontoxic during this admission. Blood cultures are still pending at the time of discharge. As the patient's condition is improved he is being discharged home in stable condition. An outpatient MARCO has been ordered by the cardiology service and the patient will follow-up with cardiology after this has been obtained. In addition, the patient complained of persistent low back pain. He has been referred to spinal surgery for further evaluation as this patient has a remote history of prior laminectomy, but now has recurrent and persistent back pain. He does not endorse saddle anesthesia or changes in bowel or bladder. He was evaluated by PT prior to discharge and he was able to ambulate without difficulty independently. We have also ordered PT and OT as an outpatient for his back pain. We recommend a referral to nephrology by the patient's new PCP after his TCM visit. Time Spent with Patient Time attestation: Total time spent providing and/or coordinating discharge services: Time spent: greater than 30 minutes Specific discharge activities: Physical exam, discussion of discharge plan, questions answered. Exam Constitutional Vital Signs, click to edit/add: Last Vital Signs Temp 98.3 F 04/27/23 08:00 Pulse 64 04/27/23 10:00 Resp 16 04/27/23 08:00 BP 160/68 H 04/27/23 08:48 Pulse Ox 93 L 04/27/23 08:00 O2 Del Method Room Air 04/27/23 08:00 Common normals: no apparent distress, oriented x3 and alert General appearance: cooperative Orientation/consciousness: Yes awake HENMT Common normals: normocephalic and head/scalp atraumatic Eye Common normals: PERRL, EOMs intact bilaterally, conjunctivae normal and no scleral icterus Respiratory Common normals: normal respiratory effort and no use of accessory muscles Effort & inspection: able to speak in complete sentences and symmetric chest movement Auscultation: wheezes (Faint EE BLL) Cardio Common normals: no JVD, regular rate, regular rhythm, S1 normal heart sound, S2 normal heart sound and peripheral pulses 2+ throughout Heart sounds: murmur (HSM 3/6) GI Common normals: Normal to inspection, nondistended, normoactive bowel sounds present, soft to palpation and non-tender Bladder/kidney exam: bladder normal to palpation Extremity Common normals: normal to inspection, full ROM, normal capillary refill and no pedal edema Neuro Common normals: moves all extremities, no focal motor deficits and no sensory deficits noted Speech: speech normal Psych Common normals: mental status grossly normal and activity/motor behavior normal DS: Data Data Completed and Pending Labs on day of discharge: Labs from last 24 hours 04/27/23 04/26/23 04:38 12:23 WBC 5.2 RBC 2.81 L Hgb 8.6 L Hct 27.4 L MCV 97.5 H MCH 30.6 MCHC 31.4 RDW 13.2 Plt Count 154 MPV 12.0 Neut % (Auto) 59.4 Lymph % (Auto) 27.3 [place] % (Auto) 10.4 Eos % (Auto) 1.9 Baso % (Auto) 0.6 Neut # (Auto) 3.1 Lymph # (Auto) 1.4 [place] # (Auto) 0.5 Eos # (Auto) 0.1 Baso # (Auto) 0.0 Abs Immat Gran (auto) 0.02 Imm/Tot Granulo (auto) 0.4 Sodium 139 Potassium 4.4 Chloride 108 H Carbon Dioxide 23.0 Anion Gap 12.4 BUN 25.0 H Creatinine 2.39 H Est GFR ( Amer) 34 L Est GFR (Non-Af Amer) 28 L BUN/Creatinine Ratio 10.5 Glucose 84 Calcium 8.6 Total Bilirubin 0.6 AST 11 L ALT 8 L Alkaline Phosphatase 127 H NT-Pro-B Natriuret Pep 2162.0 H* Total Protein 7.7 Albumin 2.9 L Globulin 4.8 Albumin/Globulin Ratio 0.6 C. difficile Toxin PCR Negative Imaging Chest x-ray: Radiologist's impression: IMPRESSION: No acute findings. 2D Echo: Radiologist's impression: CONCLUSION: 1. Mild concentric left ventricular hypertrophy with normal systolic function. LVEF is estimated at 65 to 70%. 2. Normal right ventricular size and systolic function. 3. Moderate to severe biatrial dilatation. 4. The aortic valve appears to be trileaflet. There is evidence of a mobile echogenic mass attached to the ventricular surface of the aortic valve that could represent calcification, old healed vegetation or active vegetation. There is mild to moderate eccentric aortic regurgitation. 5. A transesophageal echocardiogram is recommended to provide better assessment. Discharge Plan Discharge Disposition: Home, Self-Care Discharge Medications: New amlodipine 5 mg Tablet 10 mg PO DAILY 30 Days Qty: 60 0RF tramadol 50 mg tablet 50 mg PO Q6H PRN (Reason: pain) Qty: 20 0RF Continued allopurinol 300 mg tablet 300 mg PO DAILY mirtazapine 30 mg tablet 30 mg PO DAILY atorvastatin 20 mg tablet 20 mg PO DAILY aripiprazole [Abilify] 5 mg tablet 5 mg PO DAILY metoprolol tartrate [Lopressor] 100 mg tablet 100 mg PO DAILY Discontinued amlodipine 5 mg tablet 5 mg PO DAILY lisinopril 20 mg tablet 20 mg PO DAILY Patient Instructions: Acute Kidney Injury (DC), Basic Metabolic Panel (GEN) Activity Restrictions/Additional Instructions: - PCP to consider Nephrology referral - PT/OT order provided at discharge for lumbar back pain Forms: Portal Instructions Follow Up Appointments: May 01 @ 2pm with Stacey Roldan NP [address], [place] [phone] Please bring insurance cards, photo id, list of meds and come early to fill out paperwork prior to appt. TuesdayMay 19 @ 9:[address] Jacobs orthopedic [facility] [phone] [place] Cardiology will contact the patient to set up an outpatient MARCO appt. Discharge Date/Time: 04/27/23 12:13
--- NOTE | 2023-04-29 15:06 | CM.DCFOLLOWU ---
Person spoke with: mother of his children How are you feeling? doing alright How is your pain? no pain, voiced he was sleepy Did you understand your discharge instructions? yes Do you have any questions about your discharge instructions? no Were you given any prescriptions at discharge? yes Were you able to get your prescriptions filled? yes Do you understand how to take your medications as ordered? yes Do you have any questions about your follow up appointment and do you plan to keep your follow up appointment? no questions, aware of follow up Is there anything else that you would like to discuss? no Questions/Comments/Concerns/Other: N/A
== END 2023-04-27 12:13 | disposition home or self-care (01) | DRG 291 ==
LOC: ER 18:49 → MS 04-26 06:00
PROVIDERS: Nurse Practitioner Acute Care; Admitting Provider Family Medicine; Emergency Provider Emergency Medicine Emergency Medical Services; Visit Provider Nurse Practitioner
DX: I13.0 Hypertensive heart and chronic kidney disease with heart failure and stage 1 through stage 4 chronic kidney disease, or unspecified chronic kidney disease (principal); I50.41 Acute combined systolic (congestive) and diastolic (congestive) heart failure; N17.9 Acute kidney failure, unspecified; E78.5 Hyperlipidemia, unspecified; F31.9 Bipolar disorder, unspecified; E11.22 Type 2 diabetes mellitus with diabetic chronic kidney disease; H54.7 Unspecified visual loss; R06.09 Other forms of dyspnea; J45.909 Unspecified asthma, uncomplicated; R74.8 Abnormal levels of other serum enzymes; G89.29 Other chronic pain; M54.50 Low back pain, unspecified; N18.2 Chronic kidney disease, stage 2 (mild); I35.1 Nonrheumatic aortic (valve) insufficiency
CPT/HCPCS: 36415; 71045; 80053; 80061; 81001; 83036; 83880; 84484; 85025; 87040; 87420; 87493; 93005; 93306; 94640; 96374; 96375; 96376; 99285

== ENCOUNTER 2023-05-07 08:19 | Outpatient (OUT) | payer MEDICARE, MEDICAID, SELFPAY ==
--- NOTE | 2023-05-07 | XR_ITS ---
[facility] [id number] Patient Name: SARITHA MASTERSON MRN: [id number] date: 1965 Sex: M Assigned Patient Location: LAB Current Patient Location: Accession/Order Number: [id number] Exam Date: 05/07/2023 08:59 Report Date: 05/09/2023 07:36 At the request of: HERMINIA LOZANO Procedure: XR lumbar spine 2-3V EXAMINATION: XR lumbar spine 2-3V HISTORY: M54.30 SCIATICA COMPARISON: No relevant comparison available. FINDINGS: BONES: 30% anterior superior wedge compression fracture of L1. Moderate diffuse degenerative spondylosis and facet osteoarthropathy DISC SPACES: Multilevel disc space narrowing most significant L4-5 and L5-S1 PARASPINOUS: Negative. No paraspinous abnormality is seen. OTHER: Negative. XR/XR lumbar spine 2-3V IMPRESSION: Moderate diffuse degenerative changes Electronically authenticated by: FLO DICKINSON Date: 05/09/2023 07:36
--- OUTSIDE RECORDS SUMMARY | 2023-05-07 08:23 | XMS_ITS | CCD ---
Author Name Unknown Address [address] [place] [id number] Organization [facility] Care Team Providers Care Security Solutions Engineer Name Role Phone KELSIE CARRILLO Unavailable Unavailable BRODY ANGULO Unavailable Unavaila ble Problems Problem Classification Problem Date Documented Da te Episodic/Chronic Unclassified (1 source) Unknown / UNK(Unknown) Onset: 05-20-2017 Results Test Name Value Interpretation Reference Range Facil itvikram PROGRESSon 05-20-2017 PROGRESS HNO ID: [id number] thor: Kelsie Borjaervice: (none)Author Type: PhysicianType: Progress [...] CL fitting with Dr. Cherri Linares at [facility] not able to fit, then consider DALK [...] MD May 20, 2017 4:04 PM Normal [facility] Encounters Encounter Date Encounter Type Care Provider Facility Start: 05-20-2017 End: 05-27-2017 Ambulatory KELSIE CARRILLO [facility] Summary Purpose Family History No Family History Records Found Advance Directives No Advanced Directives Records Found Additional Source Comments (unrecognized sect ion and content) No Status Records Found INFORMATION SOURCE (unrecogn ized section and content) DATE CREATED AUTHOR 08/11/2017 [facility] FOR RECORDS PERTAINING TO PATIENTS WHO [...] BE BASED ON THE PRIMARY CLINICAL RECORDS. [facility] [employer] provides no warranty or guarantee of the accuracy or completeness of information in this document.
[2023-05-07 09:02] LABS: Basophils Percent Auto 0.7 % (0.2-2.0); Eosinophils Absolute Auto 0.2 10^3/uL (0.0-0.7); Eosinophils Percent Auto 3.2 % (0.9-7.0); Hematocrit 30.8 % (42.0-54.0); Hemoglobin 9.7 g/dL (14.0-18.0); Immature Granulocytes Abs Auto 0.02 10^3/uL (0.00-0.03); Immature Granulocytes Pct Auto 0.4 % (0.0-0.5); Lymphocytes Absolute Auto 1.4 10^3/uL (1.2-3.8); Mean Corpuscular HGB Conc 31.5 g/dL (29.9-35.2); Mean Corpuscular Hemoglobin 30.8 pg (25.9-34.0); Mean Corpuscular Volume 97.8 fL (80.0-94.0); Mean Platelet Volume 12.1 fL (9.5-13.5); Monocytes Absolute Auto 0.7 10^3/uL (0.3-0.8); Monocytes Percent Auto 12.9 % (1.7-12.0); Neutrophils Percent Auto 56.8 % (43.0-75.0); Platelet Count 156 10^3/uL (150-450); Red Blood Count 3.15 10^6/uL (4.70-6.10); Red Cell Distribution Width 12.9 % (11.0-15.0); White Blood Count 5.3 10^3/uL (4.0-11.0)
[2023-05-07 09:14] LABS: Estimated Average Glucose 88 mg/dL; Glycohemoglobin A1C 4.7 % (4.5-6.2)
[2023-05-07 09:45] LABS: Alanine Aminotransferase 13 U/L (16-63); Albumin Globulin Ratio 0.6; Albumin Level 3.2 g/dL (3.4-5.0); Alkaline Phosphatase 142 U/L (46-116); Anion Gap 17.6; Aspartate Amino Transferase 21 U/L (15-37); BUN Creatinine Ratio 8.9; Bilirubin Total 0.6 mg/dL (0.2-1.0); Calcium 8.8 mg/dL (8.5-10.1); Carbon Dioxide 24.3 mmol/L (21.0-32.0); Chloride 103 mmol/L (98-107); Chol HDL Ratio 2.7; Cholesterol 152 mg/dL (<=200); Estimated GFR (African America 30 (>=60); Estimated GFR (Non-African Ame 24 (>=60); Globulin 5.2 g/dL; Glucose 89 mg/dL (74-106); HDL Cholesterol 57 mg/dL (40-60); Potassium 4.9 mmol/L (3.5-5.1); Sodium 140 mmol/L (136-145); Total Protein 8.4 g/dL (6.4-8.2); Triglycerides 95 mg/dL (<=150)
[2023-05-07 09:53] LABS: Prostate Specific Antigen Scrn 2.06 ng/mL (<=4.00)
[2023-05-08 13:07] LABS: Insulin 7.7 uIU/mL (2.6-24.9)
== END 2023-05-07 08:20 | disposition home or self-care (01) ==
PROVIDERS: PCP Nurse Practitioner Family; Visit Provider Nurse Practitioner Family
DX: M54.30 Sciatica, unspecified side (principal); I10 Essential (primary) hypertension; M51.36 Other intervertebral disc degeneration, lumbar region
CPT/HCPCS: 36415; 72100; 80053; 80061; 83036; 83525; 85025; G0103

== ENCOUNTER 2023-05-17 07:43 | Outpatient (OUT) | payer MEDICARE, MEDICAID, SELFPAY ==
--- OUTSIDE RECORDS SUMMARY | 2023-05-17 07:45 | XMS_ITS | CCD ---
Author Organization [facility] Care Team Providers Care Double Needle Operator Name Role Phone KELSIE CARRILLO Unavailable Unavailable BRODY ANGULO Unavailable Unavaila ISABELLE Boss Referring Unavailable Problems Problem Classification Problem Date Documented Da te Episodic/Chronic Heart valve disorders (2 sources) Nonrheumatic aortic valve disorder, unspecified; Translations: [Nonrheumatic aortic valve disorder, unspecified] Onset: 05-11-2023 Chronic Unclassified (1 source) Unknown / UNK(Unknown) Onset: 05-20-2017 Results Test Name Value Interpretation Reference Range Facility HPon 05-11-2023 History Of Present Illness Saritha Masterson is a 58 y.o. male presenting for scheduled MARCO. PMHx of DM, HTN, recently diagnosed HFpEF, CKD. He was recently admitted to OSH with SOB and was newly diagnosed with ADHF/HFpEF. He was found to have worsening renal function. His 2D echo revealed preserved LVEF of 65 to 70%, normal RV size and systolic function, and moderate to severe biatrial dilatation. Evidence of a mobile echogenic mass attached to the ventricular surface of the aortic valve was noted and could represent calcification, old healed vegetation or active vegetation. Mild to moderate eccentric aortic regurgitation was also noted. A follow up MARCO was recommended. Today, he denies any CP, SOB, KAUFFMAN, dizziness or syncope. Past Medical History He has a past medical history of STEW (acute kidney injury) (CMS/[facility]) and Hypertension. Surgical History He has no past surgical history on file. Social History He has no history on file for tobacco use, alcohol use, and drug use. Allergies Patient has no known allergies. Medications (Not in a hospital admission) Reviewed on [facility] chart Review of Systems 12 point ROS negative except as in HPI Physical Exam Constitutional: General: He is not in acute distress. Appearance: He is obese. HENT: Head: Normocephalic and atraumatic. Eyes: Comments: Impaired vision, legally blind Cardiovascular: Rate and Rhythm: Bradycardia present. Pulses: Normal pulses. Pulmonary: Effort: Pulmonary effort is normal. Abdominal: General: There is no distension. Palpations: Abdomen is soft. Musculoskeletal: General: Normal range of motion. Cervical back: Normal range of motion and neck supple. Skin: General: Skin is warm and dry. Neurological: Mental Status: He is alert and oriented to person, place, and time. Psychiatric: Mood and Affect: Mood normal. Last Recorded Vitals Blood pressure 119/66, pulse (!) 46, resp. rate 18, SpO2 95 %. Relevant Results OSH TTE 04/26/23 CONCLUSION: 1. Mild concentric left ventricular hypertrophy with normal systolic function. LVEF is estimated at 65 to 70%. 2. Normal right ventricular size and systolic function. 3. Moderate to severe biatrial dilatation. 4. The aortic valve appears to be trileaflet. There is evidence of a mobile echogenic mass attached to the ventricular surface of the aortic valve that could represent calcification, old healed vegetation or active vegetation. There is mild to moderate eccentric aortic regurgitation. 5. A transesophageal echocardiogram is recommended to provide better assessment. Assessment/Plan HFpEF DM, HTN, CKD C/f mobile echogenic mass on AV - will proceed with MARCO for further assessment of AV mass and r/o vegetations/IE - procedure's details, risks and benefits discussed with the patient and he's agreeable - further recs pending MARCO results [facility] NURSNOTEon 05-11-2023 NURSNOTE RN educated pt on d/ c instructions. RN encouraged pt to voice any questions or concerns. Pt verbalizes no questions or concerns at this time. Pt was wheeled off of unit with all of belongings. Normal [facility] NURSNOTE Bedside swallow stud y completed and passed. Normal [facility] Orders Onlyon 05-10-2023 Orders Only [id number] Heraclio Masterson 1965 M Date Provider Department Center 05/10/2023 PANKAJ MCGUIRE [facility] No family history on file [facility] Telephoneon 05-03-2023 Telephone [phone] Heraclio Masterson 1965 M Date Provider Department Center 05/03/2023 JUAN J SANCHEZ [facility] No family history on file Normal [facility] PROGRESSon 05-20-2017 PROGRESS HNO ID: [id number]: Kelsie Borjaervice: (none)Author Type: PhysicianType: Progress NotesFiled: [...] of his visual loss OD is from the[place]at[place]/Keratoglo bus with 14.5 D of ATR AstigmatismConsider Specialty CL fitting with Dr. Cherri Linares at [facility] not able to fit, then consider NICHELLE MARILIA have confirmed and edited as necessary the relevant ophthalmic history,ROS, and the neuro exam findings as obtained by others. I have seen andexamined this patient.I have discussed the case and the management of this patient's care withthe Resident/Fellow, if applicable. I also have reviewed and agree withthe assessment and plan as stated above and agree with all of its relevantcomponents.Vikas Carrillo MD May 20, 2017 4:04 PM Normal [facility] Encounters Encounter Date Encounter Type Care Provider Facility Start: 05-11-2023 End: 05-12-2023 ambulatory ISABELLE RUPERT [facility] Start: 05-20-2017 End: 05-27-2017 Ambulatory KELSIE CARRILLO [facility] Payers Date Payer Category Payer Medicaid [id number] 2007 Medicare [id number] Clinical Note 05-11-2023 Note Date & Type Note Facility 05-11-2023 Note Patient: Saritha De Jesus Sco tt Procedure Information Date/Time: 05/11/23 1030 Procedure: TRANSESOPHAGEAL ECHO (MARCO) Location: [facility] Vascular Lab Clinical information reviewed: Allergies Meds Physical Exam Airway Mallampati: III TM distance: >3 FB Neck ROM: full Cardiovascular Rhythm: regular Rate: abnormal Dental Pulmonary Breath sounds clear to auscultation Abdominal (+) obese Abdomen: soft Anesthesia Plan ASA 4 other (Moderate sedation) Anesthetic plan and risks discussed with patient. Use of blood products discussed with patient who. Plan discussed with attending and fellow. Additional Equipment Requests [facility] Summary Purpose Family History No Family History Records FoundNo Family History Records Found Advance Directives No Advanced Directives Records FoundNo Advanced Directives Records Found Additional Source Comments (unrecognized sect ion and content) No Status Records FoundNo Status Records Found INFORMATION SOURCE (unrecogn ized section and content) DATE CREATED AUTHOR 08/11/2017 [facility] DATE CREATED AUTHOR AUTHOR'S ORGANIZ ATION 05/13/2023 [facility] FOR RECORDS PERTAINING TO PATIENTS WHO [...] BE BASED ON THE PRIMARY CLINICAL RECORDS. [employer] provides no warranty or guarantee of the accuracy or completeness of information in this document.
--- NOTE | 2023-05-17 07:46 | MR_ITS ---
The [address] [address] Patient Name: SARITHA MASTERSON MRN: [id number] date: 1965 Sex: M Assigned Patient Location: MRI Current Patient Location: MRI Accession/Order Number: [id number] Exam Date: 05/17/2023 08:02 Report Date: 05/17/2023 10:47 At the request of: HERMINIA LOZANO Procedure: MR lumbar spine wo con EXAMINATION: MR lumbar spine wo con HISTORY: Sciatica M54.30, Lumbago With Sciatica M54.41, COMPARISON: No relevant comparison available. TECHNIQUE: A variety of imaging planes and parameters were utilized for visualization of suspected pathology. FINDINGS: For the purposes of numbering, sagittal T2 image # 8 extends from the T10 vertebral body superiorly to the S2-S3 level inferiorly. PARASPINAL AREA: Normal with no visible mass. BONES: 10% anterior superior wedge compression fracture T12 and L1, presence of increased T2 and STIR pulse sequence suggest bone edema. Areas of signal abnormality in the L2 and L3 vertebral bodies possibly hemangiomas. Decreased T1 increased T2 signal inferior L5 superior S1 vertebral bodies likely Modic 2 changes CORD/CAUDA EQUINA: Normal caliber, contour, and signal intensity. DISC LEVELS: 12-L1: No significant disc/facet abnormality, spinal stenosis, or foraminal stenosis. L1-L2: Moderate disc space narrowing and disc desiccation. No disc bulge or herniation no central or foraminal stenosis L2-L3: Mild disc space narrowing and disc desiccation. Mild diffuse disc/osteophyte complex most significant along the left neural foramen. No central canal stenosis. Mild right and moderate left foraminal stenosis L3-L4: Mild disc desiccation. Mild disc/osteophyte complex. No central canal stenosis. Minimal bilateral foraminal stenosis L4-L5: Disc space narrowing and disc desiccation. Moderate diffuse disc/osteophyte complex and facet osteoarthropathy. No central canal stenosis. Moderate right and mild left foraminal stenosis L5-S1: Disc/osteophyte complex. No central or foraminal stenosis MR/MR lumbar spine wo con IMPRESSION: Mild anterior superior wedging of the T12 and L1 vertebral bodies, consider acute or subacute injury Moderate degenerative changes with central and foraminal stenosis at multiple levels as detailed above Electronically authenticated by: FLO DICKINSON Date: 05/17/2023 10:47
== END 2023-05-17 07:44 | disposition home or self-care (01) ==
LOC: MRI 07:43
PROVIDERS: PCP Nurse Practitioner Family; Visit Provider Nurse Practitioner Family
DX: M54.41 Lumbago with sciatica, right side (principal); M54.42 Lumbago with sciatica, left side; M51.36 Other intervertebral disc degeneration, lumbar region
CPT/HCPCS: 72148

== ENCOUNTER 2023-05-18 12:19 | Outpatient (OUT) | payer MEDICARE, MEDICAID, SELFPAY ==
--- OUTSIDE RECORDS SUMMARY | 2023-05-18 12:32 | XMS_ITS | CCD ---
Author Organization [facility] Care Team Providers Care City Plant Supervisor Name Role Phone KELSIE CARRILLO Unavailable Unavailable [...] medical history of STEW (acute kidney injury) (CMS/[facility]) and Hypertension. Surgical History He has no past surgical history on file. Social History He has no history on file for tobacco use, alcohol use, and drug use. Allergies Patient has no known allergies. Medications (Not in a hospital admission) Reviewed on [facility] chart Review of Systems 12 point ROS [...] agreeable - further recs pending MARCO results [facility] NURSNOTEon 05-11-2023 NURSNOTE RN educated pt on d/ c instructions. RN encouraged pt to voice any questions or concerns. Pt verbalizes no questions or concerns at this time. Pt was wheeled off of unit with all of belongings. Normal [facility] NURSNOTE Bedside swallow stud y completed and passed. Normal [facility] Orders Onlyon 05-10-2023 Orders Only [id number] Heraclio Masterson 1965 M Date Provider Department Center 05/10/2023 PANKAJ MCGUIRE [facility] No family history on file [facility] Telephoneon 05-03-2023 Telephone [phone] Heraclio Masterson 1965 M Date Provider Department Center 05/03/2023 JUAN J SANCHEZ [facility] No family history on file Normal [facility] PROGRESSon 05-20-2017 PROGRESS HNO ID: [id number]: Kelsie Borjaervice: (none)Author Type: PhysicianType: Progress NotesFiled: [...] CL fitting with Dr. Cherri Linares at [facility] not able to fit, then consider [...] MD May 20, 2017 4:04 PM Normal [facility] Encounters Encounter Date Encounter Type Care Provider Facility Start: 05-11-2023 End: 05-12-2023 ambulatory ISABELLE RUPERT [facility] Start: 05-20-2017 End: 05-27-2017 Ambulatory KELSIE CARRILLO [facility] Payers Date Payer Category Payer Medicaid [id number] 2007 Medicare [id number] Clinical Note 05-11-2023 Note Date & Type Note Facility 05-11-2023 Note Patient: Saritha De Jesus Sco tt Procedure Information Date/Time: 05/11/23 1030 Procedure: TRANSESOPHAGEAL ECHO (MARCO) Location: [facility] Heart and Vascular Center Vascular [...] with attending and fellow. Additional Equipment Requests [facility] Summary Purpose Family History No Family History Records FoundNo Family History Records Found Advance Directives No Advanced Directives Records FoundNo Advanced Directives Records Found Additional Source Comments (unrecognized sect ion and content) No Status Records FoundNo Status Records Found INFORMATION SOURCE (unrecogn ized section and content) DATE CREATED AUTHOR 08/11/2017 [facility] DATE CREATED AUTHOR AUTHOR'S ORGANIZ ATION 05/13/2023 [facility] FOR RECORDS PERTAINING TO PATIENTS [...] BE BASED ON THE PRIMARY CLINICAL RECORDS. [employer] provides no warranty or guarantee of the accuracy or completeness of information in this document.
[2023-05-18 13:41] LABS: Erythrocyte Sedimentation Rate 114 mm/hr (<=20)
[2023-05-19 05:08] LABS: C-Reactive Protein, Cardiac 57.23 mg/L (0.00-3.00)
== END 2023-05-18 12:20 | disposition home or self-care (01) ==
LOC: LAB 12:20
PROVIDERS: PCP Nurse Practitioner Family; Visit Provider Internal Medicine Interventional Cardiology
DX: R60.9 Edema, unspecified (principal)
CPT/HCPCS: 36415; 85652; 86140

== ENCOUNTER 2023-05-20 09:21 | Outpatient (OUT) | payer MEDICARE, MEDICAID, SELFPAY ==
--- NOTE | 2023-05-20 | XR_ITS ---
The [address] [address] Patient Name: SARITHA MASTERSON MRN: [id number] date: 1965 Sex: M Assigned Patient Location: LAB Current Patient Location: Accession/Order Number: [id number] Exam Date: 05/20/2023 09:54 Report Date: 05/21/2023 06:01 At the request of: SAMANTHA POWELL Procedure: XR lumbar spine 2-3V EXAMINATION: XR lumbar spine 2-3V HISTORY: LUMBAR SPINE PAIN COMPARISON: XR lumbar spine 05/07/2023 FINDINGS: BONES: L1 mild compression fracture; stable. 6 mm retrolisthesis of L2 on 3 which develops during extension. DISC SPACES: Moderate disc space narrowing L1-L2, L2-L3, L4-L5, L5-S1. PARASPINOUS: Negative. No paraspinous abnormality is seen. OTHER: Negative. XR/XR lumbar spine 2-3V IMPRESSION: 1. Only flexion and extension views were obtained; comparison is made to 05/07/2023. 2. 6 mm retrolisthesis of L2 on 3 develops during extension. 3. Stable moderate compression fracture L1. 4. Stable multilevel moderate degenerative disc disease. Electronically authenticated by: ANNETTE COLLADO Date: 05/21/2023 06:01
--- OUTSIDE RECORDS SUMMARY | 2023-05-20 09:26 | XMS_ITS | CCD ---
Author Organization [facility] Care Team Providers Care Livestock Dealer Name Role Phone KELSIE CARRILLO Unavailable Unavailable BRODY ANGULO Unavailable Unavaila ble ELESTEVAN, EHAB Attending Unavailable ISABELLE EMERY Referring Unavailable Problems Problem Classification Problem Date Documented Da te Episodic/Chronic Heart valve disorders (4 sources) Nonrheumatic aortic (valve) insufficiency; Translations: [Nonrheumatic aortic valve disorder, unspecified] Onset: 05-11-2023 Chronic Unclassified (1 source) Unknown / UNK(Unknown) Onset: 05-20-2017 Results Test Name Value Interpretation Reference Range Facility Office Visiton 05-18-2023 Follow-up visit [id number] Heraclio Sparrow 1965 M Date Provider Department Center 05/18/2023 [id number] Family History Problem Relation Age of Onset No Known Problems Mother No Known Problems Father Family Status - Relation Status Age at Mother Father Level of Service:[id number] PA OFFICE/OUTPATIENT ESTABLISHED MOD MDM 30 MIN Normal [facility] HPon 05-11-2023 HP History Of Present Illness Saritha Sparrow is a 58 y.o. male presenting for [...] medical history of STEW (acute kidney injury) ([facility]/HCC) and Hypertension. Surgical History He has no past surgical history on file. Social History He has no history on file for tobacco use, alcohol use, and drug use. Allergies Patient has no known allergies. Medications (Not in a hospital admission) Reviewed on [facility] chart Review of Systems 12 point ROS [...] agreeable - further recs pending MARCO results [facility] NURSNOTEon 05-11-2023 NURSNOTE Bedside swallow stud y completed and passed. [facility] NURSNOTE RN educated pt on d/ c instructions. RN encouraged pt to voice any questions or concerns. Pt verbalizes no questions or concerns at this time. Pt was wheeled off of unit with all of belongings. Normal [facility] Orders Onlyon 05-10-2023 Orders Only [id number] Heraclio Sparrow 1965 M Date Provider Department Center 05/10/2023 MAYNOR PANKAJ [facility] V[facility] MO HeartVAS No family history on file Normal [facility] Telephoneon 05-03-2023 Telephone [id number] Heraclio Sparrow 1965 M Date Provider Department Center 05/03/2023 JUAN J SANCHEZ [facility] HeartVAS No family history on file Normal [facility] PROGRESSon 05-20-2017 PROGRESS HNO ID: [id number]: Kelsie Borjaervice: (none)Author Type: PhysicianType: Progress NotesFiled: [...] CL fitting with Dr. Cherri Linares at [facility] not able to fit, then consider NICHELLE [...] MD May 20, 2017 4:04 PM Normal [facility] Encounters Encounter Date Encounter Type Care Provider Facility Start: 05-18-2023 End: 05-18-2023 ambulatory JOAN HAGAN [facility] Start: 05-11-2023 End: 05-12-2023 ambulatory ISABELLE EMERY [facility] Start: 05-20-2017 End: 05-27-2017 Ambulatory KELSIE CARRILLO [facility] Payers Date Payer Category Payer Medicaid [id number] 2007 Medicare [id number] Progress note 05-18-2023 Note Date & Type Note Facility 05-18-2023 Note [facility] Note Chief Complaint: Patient here for follow up MARCO performed by Dr. Juarez last week. Denies chest pain, SOB, palpitations, and lightheadedness/syncope. Had routine labs w/ lipid 2 weeks ago. HPI: Saritha Sparrow is a 58 y.o. male Initially seen as an inpatient for shortness of breath and suspicion of heart failure. A transthoracic echocardiogram is concerning for valve disease. He underwent a transesophageal echocardiogram on 05/11/[address] Ector Juarez. He is here to see me in follow-up. He denies a history of cardiac problems. He has no knowledge of prior kidney disease. No recent fevers or chills. He was told that he has bacteria in the blood. He is not currently on antibiotics. He denies chest pain, shortness of breath is improved. He denies orthopnea, paroxysmal, dyspnea, or lower extremity edema. He has been diabetic for the past 5 years and has been a longstanding hypertensive. Consult Narrative Reason for consult: elevated BNP, SOB Narrative: 58 yo patient presented to ED complaining shortness of breath. Says he was having wheezing and short of breath with exertion. He has never used tobacco products, admits that he lives with smokers and significant exposure. He has not had any recent influenza type symptoms. He did not have a sore throat runny nose, earache, muscle aches,or pains. He has not had any swelling of his legs. He has got longstanding hypertension and dyslipidemia. Currently denied chest pain, SOB, Orthopnea, fever, chills, N/V/D. Overall states he feels well today. Denied weight gain or leg swelling. Denied any personal h/o cardiac disease, ever having a heart cath or heart surgery. Denied any family h/o early heart disease. FORMERLY [facility], [facility]1983 Medical History (Updated 04/26/23 @ 12:51 by ISABELLE EMERY) DM2 (diabetes mellitus, type 2) E11.9 - Type 2 diabetes mellitus without complications (ICD-10) Bipolar depression F31.9 - Bipolar disorder, unspecified (ICD-10) I10 - Essential (primary) hypertension (ICD-10) CHF (congestive heart failure) I50.9 - Heart failure, unspecified (ICD-10) Chronic renal failure (CRF), stage 2 (mild) N18.2 - Chronic kidney disease, stage 2 (mild) (ICD-10) Hernia K46.9 - Unspecified abdominal hernia without obstruction or gangrene (ICD-10) Blindness H54.7 - Unspecified visual loss (ICD-10): Cardiology ROS: Review of Systems Musculoskeletal: Positive for back pain, gout and muscle weakness. All other systems reviewed and are negative. Past Medical History He has a past medical history of STEW (acute kidney injury) ([facility]) and Hypertension. Surgical History He has no past surgical history on file. Social History He has no history on file for tobacco use, alcohol use, and drug use. Family History No family history on file. Allergies Patient has no known allergies. Medications Current Outpatient Medications: allopurinol (Zyloprim) 300 mg tablet, Take 300 mg by mouth in the morning., Disp: , Rfl: amLODIPine (Norvasc) 5 mg tablet, Take 10 mg by mouth in the morning., Disp: , Rfl: ARIPiprazole (Abilify) 5 mg tablet, Take 5 mg by mouth in the morning., Disp: , Rfl: atorvastatin (Lipitor) 20 mg tablet, Take 20 mg by mouth in the morning., Disp: , Rfl: ibuprofen 800 mg tablet, Take 800 mg by mouth every 8 (eight) hours if needed for mild pain (1-3 pain score)., Disp: , Rfl: lisinopril 20 mg tablet, Take 20 mg by mouth in the morning., Disp: , Rfl: mirtazapine (Remeron) 30 mg tablet, Take 30 mg by mouth at bedtime., Disp: , Rfl: traMADol (Ultram) 50 mg tablet, Take 50 mg by mouth every 6 (six) hours if needed for severe pain (8-10 pain score)., Disp: , Rfl: Last Recorded Vitals BP 145/75 (BP Location: Left arm, Patient Position: Sitting) Pulse 85 Ht 1.702 m (5' 7 ) Wt 88.5 kg (195 lb) SpO2 95% BMI 30.54 kg/m??? Physical Examination: GENERAL: alert and oriented x3, well developed, in no acute distress. HEAD: atraumatic, normocephalic. EYES: JAVAD, EOMI. NECK: trachea midline, no JVD present, no carotid bruits present. CARDIAC: S1, S2 present. RRR. No murmur, rubs, or gallops. RESPIRATORY: CTAB, no increased effort of breathing, no rales, rhonchi, or wheezing. ABDOMEN: soft, nontender, nondistended. EXTREMITIES: no lower extremity edema, peripheral pulses are 2+ bilaterally. No rash/skin discoloration present. NEURO: strength/sensation equal and symmetric in bilateral upper and lower extremities. PSYCH: appropriate mood, affect, and judgement. Valvular regurgitation Examination: MARCO/Limited Doppler/CFI Image Quality: Good Patient Consent: Informed, written consent was obtained for the procedure s p @ c 3 Exam Location: A MARCO was performed in the Patient Support Partner without complications s p @ c 3 Anesthesia Pharyngeal anesthesia with viscous Lidocaine Conclusions Left Ventricle: The left ventricle is normal size. Global left ventricular (more content not included)... [facility] Clinical Note 05-11-2023 Note Date & Type Note Facility 05-11-2023 Note Patient: Saritha Fox tt Procedure Information Date/Time: 05/11/23 1030 Procedure: TRANSESOPHAGEAL ECHO (MARCO) Location: [facility] [...] with attending and fellow. Additional Equipment Requests [facility] Summary Purpose Family History No Family History Records FoundNo Family History Records Found Advance Directives No Advanced Directives Records FoundNo Advanced Directives Records Found Additional Source Comments (unrecognized sect ion and content) No Status Records FoundNo Status Records Found INFORMATION SOURCE (unrecogn ized section and content) DATE CREATED AUTHOR 08/11/2017 [facility] DATE CREATED AUTHOR AUTHOR'S BOGDAN JO 05/19/2023 [facility] FOR RECORDS PERTAINING TO PATIENTS WHO [...] BE BASED ON THE PRIMARY CLINICAL RECORDS. [employer] [facility]. provides no warranty or guarantee of the accuracy or completeness of information in this document.
== END 2023-05-20 09:22 | disposition home or self-care (01) ==
LOC: EC 09:21
PROVIDERS: PCP Nurse Practitioner Family; Visit Provider Orthopaedic Surgery Orthopaedic Surgery of the Spine
DX: M51.36 Other intervertebral disc degeneration, lumbar region (principal); M48.56XA Collapsed vertebra, not elsewhere classified, lumbar region, initial encounter for fracture
CPT/HCPCS: 72100

== ENCOUNTER 2023-06-23 14:34 | Outpatient (OUT) | payer MEDICARE, MEDICAID, SELFPAY ==
[2023-06-23 15:09] LABS: Basophils Absolute Auto 0.1 10^3/uL (0.0-0.1); Basophils Percent Auto 1.2 % (0.2-2.0); Eosinophils Absolute Auto 0.2 10^3/uL (0.0-0.7); Eosinophils Percent Auto 3.7 % (0.9-7.0); Hematocrit 29.9 % (42.0-54.0); Hemoglobin 9.4 g/dL (14.0-18.0); Immature Granulocytes Abs Auto 0.01 10^3/uL (0.00-0.03); Immature Granulocytes Pct Auto 0.2 % (0.0-0.5); Lymphocytes Percent Auto 33.9 % (20.5-60.0); Mean Corpuscular HGB Conc 31.4 g/dL (29.9-35.2); Mean Corpuscular Volume 92.3 fL (80.0-94.0); Mean Platelet Volume 11.6 fL (9.5-13.5); Monocytes Absolute Auto 0.5 10^3/uL (0.3-0.8); Monocytes Percent Auto 8.1 % (1.7-12.0); Neutrophils Absolute Auto 3.2 10^3/uL (1.4-6.5); Neutrophils Percent Auto 52.9 % (43.0-75.0); Platelet Count 207 10^3/uL (150-450); Red Blood Count 3.24 10^6/uL (4.70-6.10); Red Cell Distribution Width 12.8 % (11.0-15.0)
[2023-06-23 16:37] LABS: Alanine Aminotransferase 13 U/L (16-63); Albumin Globulin Ratio 0.7; Albumin Level 3.6 g/dL (3.4-5.0); Alkaline Phosphatase 105 U/L (46-116); Anion Gap 15.1; Aspartate Amino Transferase 13 U/L (15-37); BUN Creatinine Ratio 10.2; Bilirubin Total 0.5 mg/dL (0.2-1.0); Calcium 9.6 mg/dL (8.5-10.1); Carbon Dioxide 25.6 mmol/L (21.0-32.0); Chloride 105 mmol/L (98-107); Estimated GFR (African America 35 (>=60); Estimated GFR (Non-African Ame 29 (>=60); Globulin 4.9 g/dL; Glucose 110 mg/dL (74-106); Potassium 4.7 mmol/L (3.5-5.1); Sodium 141 mmol/L (136-145); Total Protein 8.5 g/dL (6.4-8.2)
== END 2023-06-23 14:35 | disposition home or self-care (01) ==
LOC: LAB 14:34
PROVIDERS: PCP Nurse Practitioner Family; Visit Provider Nurse Practitioner Family
DX: D64.9 Anemia, unspecified (principal); N18.9 Chronic kidney disease, unspecified; F10.10 Alcohol abuse, uncomplicated
CPT/HCPCS: 36415; 80053; 83540; 85025